=== PATIENT | male | born 1995 | race Caucasian/White ===

== ENCOUNTER 2019-01-22 22:37 | Emergency (ER) | payer MEDICAID ==
--- NOTE | 2019-01-22 23:00 | EDM.PDOC ---
ED HPI GENERAL MEDICAL PROBLEM - General Chief Complaint: Neurological Problem Stated Complaint: DIZZY Time Seen by Provider: 01/22/19 23:00 Source of Information: Reports: Patient History Limitations: Reports: No Limitations - History of Present Illness INITIAL COMMENTS - FREE TEXT/NARRATIVE: 24 yo with complaints of tiredness,weakness and dizziness. Started earlier today.He feels dizzy,described as feeling faint. Not sure if he had a seizure.Has had decreased appetite and one episode of vomiting that happened yesterday.He has Autism-high functioning,and a h/o seizure disorder with VNS and Keppra.Denies any headache - Related Data Allergies Allergy/AdvReac Type Severity Reaction Status Date / Time No Known Allergies Allergy Verified 01/22/19 22:48 Home Meds: Home Meds Allopurinol [Zyloprim] 300 mg BEDTIME 01/22/19 [History] FLUoxetine [PROzac] 10 mg PO BEDTIME 01/22/19 [History] hydrOXYzine pamoate [Vistaril] 25 mg PO BEDTIME 01/22/19 [History] levETIRAcetam [Keppra Xr] 1,000 mg PO BEDTIME 01/22/19 [History] ED ROS GENERAL - Review of Systems Review Of Systems: ROS reveals no pertinent complaints other than HPI. ED EXAM, NEURO - Physical Exam Exam: See Below Exam Limited By: No Limitations General Appearance: Alert, WD/WN Ears: Normal External Exam Nose: Normal Inspection Throat/Mouth: Normal Inspection Neck: Normal Inspection Respiratory/Chest: No Respiratory Distress, No Accessory Muscle Use Cardiovascular: Normal Peripheral Pulses Extremities: Normal Inspection Psychiatric: Depressed Mood EKG INTERPRETATION EKG Date: 01/22/19 [place]: Normal Course - Vital Signs Last Recorded V/S: Last Vital Signs Temp 98.2 F 01/22/19 22:40 Pulse 69 01/22/19 22:40 Resp 18 01/22/19 22:40 BP 159/86 H 01/22/19 22:40 Pulse Ox 95 01/22/19 22:40 - Orders/Labs/Meds Orders: Active Orders 24 hr Category Date Time Status Sodium Chloride 0.9% [Normal Saline] 1,000 ml Med 01/22/19 23:15 Active IV ASDIRECTED Medication Orders Sodium Chloride (Normal Saline) 1,000 mls @ 999 mls/hr IV ASDIRECTED KEVIN Last Admin: 01/22/19 23:15 Dose: 999 mls/hr Labs: Laboratory Tests 01/22/19 01/22/19 01/22/19 Range/Units 22:50 22:50 22:50 WBC 9.5 (4.5-12.0) X10-3/uL RBC 5.26 (4.30-5.75) x10(6)uL Hgb 15.4 (13.5-17.8) g/dL Hct 45.6 (30.0-51.3) % MCV 86.8 (80-96) fL MCH 29.3 (27.7-33.6) pg MCHC 33.7 (32.2-35.4) g/dL RDW 12.5 (11.5-15.5) % Plt Count 249 (125-369) X10(3)uL MPV 7.7 (7.4-10.4) fL Neut % (Auto) 60.1 (46-82) % Lymph % (Auto) 29.1 (13-37) % Robeson % (Auto) 7.8 (4-12) % Eos % (Auto) 2 (1.0-5.0) % Baso % (Auto) 1 (0-2) % Neut # (Auto) 5.7 (1.6-8.3) # Lymph # (Auto) 2.8 (0.6-5.0) # Robeson # (Auto) 0.7 (0.0-1.3) # Eos # (Auto) 0.2 (0.0-0.8) # Baso # (Auto) 0.1 (0.0-0.2) # Sodium 140 (135-145) mmol/L Potassium 4.1 (3.5-5.3) mmol/L Chloride 104 (100-110) mmol/L Carbon Dioxide 28 (21-32) mmol/L BUN 15 (7-18) mg/dL Creatinine 1.1 (0.70-1.30) mg/dL Est Cr Clr Drug Dosing TNP Estimated GFR (MDRD) > 60 (>60) BUN/Creatinine Ratio 13.6 (9-20) Glucose 97 (80-116) mg/dL Calcium 9.1 (8.6-10.2) mg/dL Troponin I < 0.017 L (<0.017-0.056) ng/mL Meds: Medications Generic Name Dose Route Start Last Admin Trade Name Michelle PRN Reason Stop Dose Admin Sodium Chloride 1,000 mls @ 999 mls/hr 01/22/19 23:15 01/22/19 23:15 Normal Saline IV 999 mls/hr ASDIRECTED KEVIN Administration Departure - Departure Time of Disposition: 23:36 Disposition: Home, Self-Care 01 Condition: Good Clinical Impression: Dizziness - Discharge Information Instructions: Dizziness Referrals: Chance Grijalva MD [Primary Care Provider] - 2 Days Forms: ED Department Discharge Additional Instructions: Activity as tolerated. Rest. Fluids. Follow up with regular MD at clinic in 2 days, call for appt. - Problem List & Annotations (1) Weakness SNOMED Code(s): 77258725 Code(s): R53.1 - WEAKNESS Status: Acute Current Visit: Yes (2) Dizziness SNOMED Code(s): 568206461, 734231280 Code(s): R42 - DIZZINESS AND GIDDINESS Status: Acute Current Visit: Yes (3) H/O tonic-clonic seizures SNOMED Code(s): 833084167 Code(s): Z86.69 - PERSONAL HISTORY OF DIS OF THE NERVOUS SYS AND SENSE ORGANS Status: Acute Current Visit: Yes - Problem List Review Problem List Initiated/Reviewed/Updated: Yes - My Orders Last 24 Hours: My Active Orders 01/22/19 23:15 Sodium Chloride 0.9% [Normal Saline] 1,000 ml IV ASDIRECTED - Assessment/Plan Last 24 Hours: My Active Orders 01/22/19 23:15 Sodium Chloride 0.9% [Normal Saline] 1,000 ml IV ASDIRECTED Plan: Labs all looked OK. 1 L NS given. DC home. Rest. Follow up[ on Thursday
[2019-01-22] MEDS ORDERED: Sodium Chloride 0.9% 1,000 ML IV SCH (23:15)
== END 2019-01-23 01:05 | disposition home or self-care (01) ==
LOC: FB.ED 22:37
DX: R42 Dizziness and giddiness (principal); R53.1 Weakness; Z79.899 Other long term (current) drug therapy
CPT/HCPCS: 36415; 80048; 84484; 85025; 96360; 99284; J7030

== ENCOUNTER 2020-03-07 20:09 | Emergency (ER) | payer MEDICAID ==
[2020-03-07] MEDS ORDERED: Ketorolac 60 MG/2 ML SDV IM ONE (20:30)
[2020-03-07] MEDS ORDERED: Cyclobenzaprine 10 MG Tab PO ONE (20:30)
[2020-03-07] MEDS ORDERED: Acetaminophen 500 MG Tab PO ONE (20:30)
--- NOTE | 2020-03-07 21:34 | EDM.PDOC ---
ED HPI GENERAL MEDICAL PROBLEM - General Chief Complaint: Lower Extremity Injury/Pain Stated Complaint: LOWER BACK INJURY Time Seen by Provider: 03/07/20 20:25 Source of Information: Reports: Patient History Limitations: Reports: No Limitations - History of Present Illness INITIAL COMMENTS - FREE TEXT/NARRATIVE: Patient presented to the ED because of right hip pain. He from from a 4 [place]arcia and landed on his rt hip. He c/o pain,7/10/ and worse with movements. right hip Pain Score (Numeric/FACES): 4 - Related Data Allergies Allergy/AdvReac Type Severity Reaction Status Date / Time No Known Allergies Allergy Verified 03/07/20 20:31 Home Meds: Home Meds FLUoxetine [PROzac] 10 mg PO BEDTIME 01/22/19 [History] allopurinoL [Zyloprim] 300 mg BEDTIME 01/22/19 [History] hydrOXYzine pamoate [Vistaril] 25 mg PO BEDTIME 01/22/19 [History] levETIRAcetam [Keppra Xr] 1,000 mg PO BEDTIME 01/22/19 [History] Cyclobenzaprine [Flexeril] 10 mg PO TID PRN #15 tab 03/07/20 [Rx] Ibuprofen 800 mg PO Q8H PRN #30 tablet 03/07/20 [Rx] Past Medical History Neurological History: Reports: Seizure Psychiatric History: Reports: Anxiety, Autism, Depression Endocrine/Metabolic History: Reports: Obesity/BMI 30+ - Infectious Disease History Infectious Disease History: Reports: Chicken Pox - Past Surgical History HEENT Surgical History: Reports: Adenoidectomy, Oral Surgery, Tonsillectomy Other Neurological Surgeries/Procedures: hx VNS implant for seizure Social & Family History - Family History Family Medical History: Noncontributory - Caffeine Use Caffeine Use: Reports: Coffee, Tea Review of Systems - Review of Systems Review Of Systems: See Below Constitutional: Reports: No Symptoms Eyes: Reports: No Symptoms Ears: Reports: No Symptoms Nose: Reports: No Symptoms Mouth/Throat: Reports: No Symptoms Respiratory: Reports: No Symptoms Cardiovascular: Reports: No Symptoms GI/Abdominal: Reports: No Symptoms, Other Genitourinary: Reports: No Symptoms Musculoskeletal: Reports: Muscle Pain Skin: Reports: No Symptoms ED EXAM, GENERAL - Physical Exam Exam: See Below Exam Limited By: No Limitations General Appearance: Alert, No Apparent Distress Ears: Normal External Exam, Normal Canal Nose: Normal Inspection, Normal Mucosa, No Blood Throat/Mouth: Normal Inspection, Normal Lips, Normal Teeth Head: Atraumatic, Normocephalic Neck: Normal Inspection, Supple, Non-Tender, Full Range of Motion Respiratory/Chest: No Respiratory Distress, Lungs Clear, Normal Breath Sounds Cardiovascular: Normal Peripheral Pulses, Regular Rate, Rhythm, No Edema, No Ga llop GI/Abdominal: Normal Bowel Sounds, Soft, Non-Tender, No Organomegaly Back Exam: Normal Inspection Extremities: Normal Inspection, Other (tenderness over the right hip) Neurological: Alert, Oriented, CN II-XII Intact, Normal Cognition, Normal Gait Psychiatric: Normal Affect, Normal Mood Course - Vital Signs Text/Narrative:: Toradol 60 mg IM x1 Flexeril 10 mg PO x1 Tylenol 1000 mg po xray rt hip/pelvis-see result Last Recorded V/S: Last Vital Signs Temp 36.8 C 03/07/20 20:20 Pulse 87 03/07/20 21:31 Resp 17 03/07/20 21:31 BP 121/67 03/07/20 21:31 Pulse Ox 98 03/07/20 21:31 - Orders/Labs/Meds Orders: Active Orders 24 hr Category Date Time Status Hip Min 2V or 3V w Pelvis Rt [CR] Stat Exams 03/07/20 20:45 Taken Labs: Laboratory Tests 03/07/20 03/07/20 Range/Units 20:48 20:55 Urine Opiates Screen Negative (NEGATIVE) Ur Oxycodone Screen Negative (NEGATIVE) Ur Propoxyphene Screen Negative (NEGATIVE) Ur Barbituates Screen Negative (NEGATIVE) Ur Tricyclics Screen Negative (NEGATIVE) Ur Phencyclidine Scrn Negative (NEGATIVE) Ur Amphetamine Screen Negative (NEGATIVE) Urine MDMA Screen Negative (NEGATIVE) U Benzodiazepines Scrn Negative (NEGATIVE) U Cocaine Metab Screen Negative (NEGATIVE) U Marijuana (THC) Screen Positive H (NEGATIVE) Ethyl Alcohol < 0.03 (<0.03) % Meds: Medications Discontinued Medications Generic Name Dose Route Start Last Admin Trade Name Freq PRN Reason Stop Dose Admin Acetaminophen 1,000 mg 03/07/20 20:30 03/07/20 21:05 Tylenol Extra Strength PO 03/07/20 20:31 1,000 mg ONETIME ONE Administration Cyclobenzaprine HCl 10 mg 03/07/20 20:30 03/07/20 21:04 Flexeril PO 03/07/20 20:31 10 mg ONETIME ONE Administration Ketorolac Tromethamine 60 mg 03/07/20 20:30 03/07/20 21:04 Toradol IM 03/07/20 20:31 60 mg ONETIME ONE Administration Departure - Departure Time of Disposition: 21:30 Disposition: Home, Self-Care 01 Condition: Good Clinical Impression: Contusion, Substance abuse - Discharge Information Prescriptions: Cyclobenzaprine [Flexeril] 10 mg PO TID PRN #15 tab PRN Reason: Muscle Spasm Ibuprofen 800 mg PO Q8H PRN #30 tablet PRN Reason: Pain Instructions: Contusion, Substance Use Disorder Referrals: Chance Grijalva MD [Primary Care Provider] - Forms: ED Department Discharge Additional Instructions: Please read discharge instructions on contusion and substance abuse Take flexeril 10 mg with ibuprofen 800 mg and tylenol 1000 mg every 8 hours as needed for spasms and pain Follow up as needed Sepsis Event Note (ED) - Evaluation Sepsis Screening Result: No Definite Risk - Focused Exam Vital Signs: Vital Signs Temp Pulse Resp BP Pulse Ox 03/07/20 21:31 87 17 121/67 98 03/07/20 20:20 36.8 C 85 17 138/69 96 - My Orders Last 24 Hours: My Active Orders 03/07/20 20:45 Hip Min 2V or 3V w Pelvis Rt [CR] Stat - Assessment/Plan Last 24 Hours: My Active Orders 03/07/20 20:45 Hip Min 2V or 3V w Pelvis Rt [CR] Stat
--- NOTE | 2020-03-08 11:19 | CR ---
INDICATION: Fall, right hip pain. RIGHT HIP WITH PELVIS: Four views of the pelvis and right hip were obtained 03/07/20 - no comparison. There are hypertrophic changes of moderate degree at the right hip joint with the joint space very minimally narrowed craniolaterally on the right. Otherwise, hip joint spaces were well maintained. No acute fracture or dislocation was identified. Normal bone density is noted. Minimal degenerative change is noted at the right sacroiliac joint. IMPRESSION: 1. No acute process - no acute fracture or dislocation. 2. Mild degenerative changes right hip joint. MTDD
== END 2020-03-07 21:50 | disposition home or self-care (01) ==
LOC: FB.ED 20:09
DX: S70.01XA Contusion of right hip, initial encounter (principal); F41.9 Anxiety disorder, unspecified; R56.9 Unspecified convulsions; F32.9 Major depressive disorder, single episode, unspecified; F19.10 Other psychoactive substance abuse, uncomplicated; F84.0 Autistic disorder; E66.9 Obesity, unspecified; Z68.41 Body mass index [BMI] 40.0-44.9, adult; Z79.899 Other long term (current) drug therapy; V59.9XXA Occupant (driver) (passenger) of pick-up truck or van injured in unspecified traffic accident, initial encounter
CPT/HCPCS: 36415; 73502; 80305; 80307; 96372; 99283; A9270; J1885

== ENCOUNTER 2022-07-25 18:36 | Emergency (ER) | payer MEDICAID ==
[2022-07-25] MEDS ORDERED: Sodium Chloride 0.9% 10 ML Syringe FLUSH PRN (19:32)
[2022-07-25] MEDS ORDERED: Sodium Chloride 0.9% 1,000 ML IV ONE (19:32)
[2022-07-25 20:03] LABS: ESTIMATED GFR 119 mL/min (>60)
[2022-07-25 20:21] LABS: CORONAVIRUS COVID-19 NAA NEGATIVE (NEGATIVE)
== END 2022-07-25 21:30 | disposition home or self-care (01) ==
LOC: FB.ED 18:36
DX: R55 Syncope and collapse (principal); E86.0 Dehydration; B34.9 Viral infection, unspecified; E66.9 Obesity, unspecified; Z68.42 Body mass index [BMI] 45.0-49.9, adult; Z79.899 Other long term (current) drug therapy; Z20.822 Contact with and (suspected) exposure to COVID-19
CPT/HCPCS: 0241U; 36415; 80053; 81001; 83735; 85025; 96360; 99283; 99284-25; J3490; J7030

== ENCOUNTER 2022-09-28 10:21 | Emergency (ER) | payer MEDICAID ==
[2022-09-28 11:55] LABS: ESTIMATED GFR 124 mL/min (>60)
== END 2022-09-28 12:47 | disposition home or self-care (01) ==
LOC: FB.ED 10:21
DX: R31.9 Hematuria, unspecified (principal); F84.0 Autistic disorder; F64.9 Gender identity disorder, unspecified; G40.909 Epilepsy, unspecified, not intractable, without status epilepticus; E66.9 Obesity, unspecified; Z68.42 Body mass index [BMI] 45.0-49.9, adult
CPT/HCPCS: 36415; 80053; 81001; 85025; 87086; 99283

== ENCOUNTER 2022-10-14 19:00 | Emergency (ER) | payer MEDICAID ==
[2022-10-14] MEDS ORDERED: Ondansetron 4 MG Tab.DIS PO ONE (19:46)
[2022-10-14 20:06] LABS: ESTIMATED GFR 119 mL/min (>60)
[2022-10-14] MEDS ORDERED: Meclizine 25 MG Tab PO ONE (21:05)
== END 2022-10-14 21:20 | disposition home or self-care (01) ==
LOC: FB.ED 19:00
DX: H81.10 Benign paroxysmal vertigo, unspecified ear (principal); E66.9 Obesity, unspecified; Z68.32 Body mass index [BMI] 32.0-32.9, adult; Z79.899 Other long term (current) drug therapy; Z86.16 Personal history of COVID-19
CPT/HCPCS: 36415; 80048; 85025; 99284; A9270; Q0162

== ENCOUNTER 2022-10-28 20:41 | Emergency (ER) | payer MEDICAID ==
[2022-10-28] MEDS ORDERED: Ondansetron 4 MG Tab.DIS PO ONE (21:05)
[2022-10-28] MEDS ORDERED: Meclizine 25 MG Tab PO STA (21:05)
[2022-10-28] MEDS ORDERED: hydrOXYzine HCl 50 MG/ML SDV IM ONE (22:16)
[2022-10-28 22:36] LABS: ESTIMATED GFR 119 mL/min (>60)
== END 2022-10-28 23:12 | disposition home or self-care (01) ==
LOC: FB.ED 20:41
DX: H81.10 Benign paroxysmal vertigo, unspecified ear (principal); F17.210 Nicotine dependence, cigarettes, uncomplicated; E66.9 Obesity, unspecified; Z68.42 Body mass index [BMI] 45.0-49.9, adult; Z79.899 Other long term (current) drug therapy; Z86.16 Personal history of COVID-19
CPT/HCPCS: 36415; 70450; 80048; 85025; 96372; 99282; 99284; A9270-GY; J3410; Q0162

== ENCOUNTER 2023-02-10 17:43 | Emergency (ER) | payer MEDICAID ==
[2023-02-10 18:31] LABS: BASOPHILS ABSOLUTE AUTO 0.1 x10-3/uL (0.0-0.3); BASOPHILS PERCENT AUTO 0.6 % (0.3-3.8); EOSINOPHILS ABSOLUTE AUTO 0.1 x10-3/uL (0.0-0.6); EOSINOPHILS PERCENT AUTO 0.9 % (0.1-6.8); HEMATOCRIT 42.1 % (38.3-50.1); HEMOGLOBIN 14.1 g/dL (12.9-17.7); LYMPHOCYTES ABSOLUTE AUTO 2.1 x10-3/uL (0.5-4.5); LYMPHOCYTES PERCENT AUTO 23.2 % (15.8-45.3); MEAN CORPUSCULAR HGB CONC 33.4 g/dL (28.7-35.3); MEAN CORPUSCULAR VOLUME 89.8 fL (80.8-98.7); MONOCYTES ABSOLUTE AUTO 0.7 x10-3/uL (0.0-1.2); MONOCYTES PERCENT AUTO 7.8 % (5.5-15.2); NEUTROPHILS PERCENT AUTO 67.5 % (40.3-71.8); PLATELET COUNT,PLT 306 x10(3)uL (117-477); RED BLOOD CELL COUNT 4.69 x10(6)uL (3.90-5.90); RED CELL DISTRIBUTION WIDTH 13.1 % (12.4-15.0); WHITE BLOOD CELL COUNT,WBC 8.9 x10-3/uL (3.2-10.1)
[2023-02-10 18:51] LABS: BLOOD UREA NITROGEN,BUN 12 mg/dL (7-18); BUN/CREATININE RATIO 13.3 (9-20); CALCIUM 9.1 mg/dL (8.6-10.2); CARBON DIOXIDE,CO2 29 mmol/L (21-32); CHLORIDE,CL 103 mmol/L (100-110); CREATININE 0.9 mg/dL (0.70-1.30); EST CRCL DRUG DOSING (CG) 128.99 mL/min; ESTIMATED GFR 119 mL/min (>60); GLUCOSE RANDOM 97 mg/dL (80-116); SODIUM,NA 140 mmol/L (135-145)
[2023-02-10 18:58] LABS: A/G RATIO 1.1; ALANINE AMINOTRANSFERASE,ALT 31 U/L (12-36); ALBUMIN 3.9 g/dL (3.5-5.2); ALKALINE PHOSPHATASE 71 IU/L (56-112); ASPARTATE AMNIOTRANSFERASE,AST 28 IU/L (5-25); BILIRUBIN TOTAL 0.3 mg/dL (0.1-1.3); PROTEIN TOTAL,TP 7.6 g/dL (6.0-8.0); SALICYLATE 1.2 mg/dL (<2.8)
[2023-02-10 19:00] LABS: ACETAMINOPHEN < 2 ug/mL (<2)
[2023-02-10 19:06] LABS: TSH ULTRASENSITIVE 2.47 IU/mL (0.36-3.74)
[2023-02-10 19:07] LABS: ETHANOL BLOOD MEDICAL < 0.03 % (<0.03)
[2023-02-10 19:31] LABS: AMPHETAMINES SCREEN, URINE NEGATIVE (NEGATIVE); BARBITURATE SCREEN,URINE NEGATIVE (NEGATIVE); BENZODIAZEPINES SCREEN,URINE NEGATIVE (NEGATIVE); METHADONE SCREEN, URINE NEGATIVE (NEGATIVE); METHAMPHETAMINE SCREEN, URINE NEGATIVE (NEGATIVE); OXYCODONE SCREEN,URINE NEGATIVE (NEGATIVE); PROPOXYPHENE SCREEN,URINE NEGATIVE (NEGATIVE); THC SCREEN,URINE POSITIVE (NEGATIVE)
[2023-02-10 19:32] LABS: BUPRENORPHINE SCREEN,URINE NEGATIVE (NEGATIVE)
== END 2023-02-11 11:02 ==
LOC: FB.ED 17:43
DX: F43.21 Adjustment disorder with depressed mood (principal); R45.851 Suicidal ideations; K21.9 Gastro-esophageal reflux disease without esophagitis; Z79.899 Other long term (current) drug therapy; Z86.16 Personal history of COVID-19; Z20.822 Contact with and (suspected) exposure to COVID-19
CPT/HCPCS: 36415; 80053; 80143; 80179; 80307; 84443; 85025; 99285; U0002